=== PATIENT | female | born 1990 | race Two or more races ===

== ENCOUNTER 2020-01-18 12:27 | Emergency (ER) | payer MEDICAID ==
[~2020-01-18] VITALS: Ht 167.6 cm; Wt 81.6 kg
[2020-01-18 12:33] VITALS: BP 107/55
[2020-01-18 12:39] VITALS: BP 110/60
--- NOTE | 2020-01-18 12:39 | NUR ---
ED Nurse Note: Patient walked in to ED for c/o rash x 3 days. PT reports redness and itchiness, and thinks its possible allergic reaction to something. pt also states she is 8 weeks .
[2020-01-18] MEDS ORDERED: BENADRYL25 MG ORAL (12:50)
[2020-01-18] MEDS ORDERED: HYDROCORTISONE28 G2 TP (12:50)
[2020-01-18] MEDS ORDERED: PREDNISONE20 MG ORAL (12:50)
--- NOTE | 2020-01-18 12:58 | NUR ---
ER DISCHARGE NOTE: Patient is cleared to be discharged per ERMD, pt is aox4, on room air, with stable vital signs. pt was given dc and prescription instructions, pt was able to verbalize understanding, pt id band removed without complications. pt is able to ambulate with steady gait. pt took all belongings.
--- NOTE | 2020-01-18 12:59 | Emergency Room Report ---
History of Present Illness General Chief Complaint: Skin Rash/Abscess Source: Patient Present Illness HPI Patient presents with complaints of rash that she has noticed on both of her legs over the past 3 days Patient reports that they are fairly itchy in nature she is approximately 9 weeks denies any other chest pain or shortness of breath Denies any vaginal discharge denies any pelvic pain Patient reports that she is a G4, P3 denies any dysuria frequency the rash appears to be mainly localized to both lower legs Does not recall any specific contact with any new products Allergies: Coded Allergies: No Known Allergies (Unverified , 10/08/15) COVID-19 Screening Contact w/high risk pt: No Recent Travel to affected area: No Experienced COVID-19 symptoms?: No Patient History Past Medical History: see triage record Now: Yes : 4 Para: 4 Reviewed Nursing Documentation: PMH: Agreed; PSxH: Agreed Nursing Documentation-PM Past Medical History: No Stated History Review of Systems All Other Systems: negative except mentioned in HPI Physical Exam Vital Signs Date Time Temp Pulse Resp B/P (MAP) Pulse Ox O2 Delivery O2 Flow Rate FiO2 01/18/20 12:33 98.6 84 19 107/55 (72) 96 Sp02 EP Interpretation: reviewed, normal General Appearance: well appearing, no apparent distress Head: normocephalic, atraumatic Eyes: bilateral eye PERRL, bilateral eye EOMI ENT: hearing grossly normal, normal pharynx, TMs + canals normal, uvula midline Neck: full range of motion, supple, no meningismus, no bony tend Respiratory: lungs clear, normal breath sounds, no rhonchi, no respiratory distress, no retraction, no accessory muscle use Cardiovascular #1: normal peripheral pulses, regular rate, rhythm, no edema, no gallop, no JVD, no murmur Gastrointestinal: normal bowel sounds, non tender - Early abdomen is not palpable, soft, no mass, no organomegaly, non-distended, no guarding, no hernia, no pulsatile mass, no rebound Genitourinary: no CVA tenderness Musculoskeletal: normal inspection Neurologic: motor strength/tone normal, rock wool insulator III-XII nml as tested, oriented x3 , sensory intact, responsive Psychiatric: mood/affect normal Skin: other - Urticarial rash noted diffusely in the lower extremity does not appear to affect the base of the feet Lymphatic: normal inspection, no adenopathy Medical Decision Making Diagnostic Impression: Primary Impression: allergic reaction ER Course The rash appears to be fairly localized to both lower legs there is consideration for possible lotion for shaving her legs or other contact with a razor It appears urticarial in nature and there is no petechiae There is no dermal pattern to it and appears allergic in nature Patient will have initial conservative outpatient trial avoid contact with any foreign material and return with any changes or concerns Last Vital Signs Date Time Temp Pulse Resp B/P (MAP) Pulse Ox O2 Delivery O2 Flow Rate FiO2 01/18/20 12:39 98.6 85 18 110/60 97 Status: improved Disposition: HOME, SELF-CARE Condition: Improved Scripts Hydrocortisone 1% Oint (Hydrocortisone 1% Oint*) Y Oint 2 GM TP DAILY for 5 Days, #2 GM Prov: Sean Watson DO 01/18/20 Prednisone* (PREDNISONE*) 20 Mg Tablet 20 MG ORAL BID, #8 TAB Prov: Sean Watson DO 01/18/20 Diphenhydramine Hcl* (BENADRYL*) 25 Mg Capsule 25 MG ORAL Q8HR PRN for Itching, #20 CAP Prov: Sean Watson DO 01/18/20 Referrals: [facility] Patient Instructions: Rash, [id number] Additional Instructions: Patient is provided with the discharge instructions notified to follow up with primary doctor in the next 2-3 days otherwise return to the er with any worsening symptoms. Please note that this report is being documented using [employer] technology. This can lead to erroneous entry secondary to incorrect interpretation by the dictating instrument. Sean Watson DO January 18, 2020 12:59
== END 2020-01-18 12:59 | disposition home or self-care (01) ==
LOC: EMR 12:50
DX: T78.40XA Allergy, unspecified, initial encounter (principal); X58.XXXA Exposure to other specified factors, initial encounter; O26.90 Pregnancy related conditions, unspecified, unspecified trimester; Z3A.00 Weeks of gestation of pregnancy not specified
CPT/HCPCS: 99282

== ENCOUNTER 2020-11-17 14:53 | Emergency (ER) | payer MEDICAID ==
[~2020-11-17] VITALS: Ht 167.6 cm; Wt 99.8 kg
[~2020-11-17 14:53] MED LIST: BENADRYL25 MG ORAL; HYDROCORTISONE28 G2 TP; PREDNISONE20 MG ORAL
[2020-11-17 16:42] VITALS: BP 112/61
[2020-11-17 16:51] LABS: ANION GAP 10 mmol/L (5-15); BLOOD UREA NITROGEN 16 mg/dL (7-18); CALCIUM 8.9 MG/DL (8.5-10.1); CARBON DIOXIDE 25 MMOL/L (21-32); CHLORIDE 104 MMOL/L (98-107); CREATININE 0.8 MG/DL (0.55-1.30); POTASSIUM 3.7 MMOL/L (3.5-5.1); SODIUM 139 MMOL/L (136-145)
[2020-11-17 16:53] LABS: ALANINE AMINOTRANSFERASE 31 U/L (12-78); ALBUMIN 3.9 G/DL (3.4-5.0); ALBUMIN/GLOBULIN RATIO 0.9 (1.0-2.7); ALKALINE PHOSPHATASE 76 U/L (46-116); ASPARTATE AMINO TRANSFERASE 18 U/L (15-37); BILIRUBIN,TOTAL 0.6 MG/DL (0.2-1.0)
[2020-11-17 17:05] LABS: HEMATOCRIT 37.1 % (37.0-47.0); HEMOGLOBIN 11.2 G/DL (12.0-16.0); MEAN CORPUSCULAR VOLUME 77 FL (80-99); PLATELET COUNT 207 K/UL (150-450); RED CELL DISTRIBUTION WIDTH 16.5 % (11.6-14.8); WHITE BLOOD COUNT 9.2 K/UL (4.8-10.8)
--- NOTE | 2020-11-17 17:48 | Diagnostic Imaging Report ---
EXAM: CT Abdomen and Pelvis With Intravenous Contrast CLINICAL HISTORY: PAIN TECHNIQUE: Axial computed tomography images of the abdomen and pelvis with intravenous contrast. CTDI is 10.7 mGy and DLP is 599.1 mGy-cm. One or more of the following dose reduction techniques were used: automated exposure control, adjustment of the mA and/or kV according to patient size, use of iterative reconstruction technique. COMPARISON: None. FINDINGS: Lung bases: Unremarkable. No mass. No consolidation. Mediastinum: Postoperative changes of the level of the stomach. No hiatal hernia. ABDOMEN: Liver: Unremarkable. No mass. Gallbladder and bile ducts: Unremarkable. No calcified stones. No ductal dilation. Pancreas: Unremarkable. No mass. No ductal dilation. Spleen: Unremarkable. No splenomegaly. Adrenals: Unremarkable. No mass. Kidneys and ureters: Unremarkable. No solid mass. No hydronephrosis. Stomach and bowel: Diffuse thickening of the wall throughout the ascending colon, transverse colon and less severe through the descending colon consistent with diffuse colitis. No obstruction. PELVIS: Appendix: Normal appendix. Bladder: Unremarkable. No mass. Reproductive: Unremarkable as visualized. ABDOMEN and PELVIS: Intraperitoneal space: Unremarkable. No free air. No significant fluid collection. Bones/joints: Mild degenerative disease at L5-S1. No acute fracture. No dislocation. Soft tissues: Unremarkable. Vasculature: Unremarkable. No abdominal aortic aneurysm. Lymph nodes: Unremarkable. No enlarged lymph nodes. IMPRESSION: 1. Diffuse colitis as described. No acute appendicitis or bowel obstruction. 2. Unremarkable abdominal viscera.
[2020-11-17 17:56] VITALS: BP 106/57
--- NOTE | 2020-11-17 17:59 | NUR ---
pt arrived for chills, upper abd pain, nausea, diarrhea x2 days. pt denies fever. checked temp oral, pt febrile (see vitals charting). Nahal notified. pt placed on monitor. IV started, blood drawn, labs sent, pt urine sent. pt medicated per eMAR. pt A&OX4, stable. pt denies PMH. denies allergies to medication. pt taken to CT, US completed. 1749: recheck pt temp, 101.2 oral, Nahal notified. pt denies pain.
--- NOTE | 2020-11-17 18:16 | Emergency Room Report ---
History of Present Illness General Chief Complaint: Abdominal Pain Source: Patient Present Illness HPI 30-year-old female with history of gastritis here complaining of 1 day of abdominal pain mainly in epigastric and right upper quadrant, fever, flatulence. Reports that she got tested for COVID-19 today and tested negative. Denies any cough or congestion. Reports that she has had multiple bouts of nonbloody diarrhea. Denies nausea vomiting. Denies headache and dizziness. Denies urinary frequency or urgency, . Reports that she usually eats raw fish and oysters. Patient has history of gastric bypass which happened in 2019. Is up-to-date with all have been assessed to general surgeons. Reports that she also eats a lot of spicy acidic food. Appears to be stable, febrile upon arrival. Denies palpitation chest pain. Reports that symptoms started at rest. Denies recent travel. Reports that she smokes marijuana daily basis however denies all other drug use, tobacco smoke, alcohol intake. 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 COVID-19 Screening: Negative COVID-19 COVID-19 Testing Source: nasal Patient History Past Medical History: see triage record Past Surgical History: none Pertinent Family History: none Social History: Reports: drug use - Marijuana use Last Menstrual Period: 11/06/20 Now: No Immunizations: UTD Reviewed Nursing Documentation: PMH: Agreed; PSxH: Agreed Nursing Documentation-PMH Past Medical History: No Stated History Review of Systems All Other Systems: negative except mentioned in HPI Physical Exam Vital Signs Date Time Temp Pulse Resp B/P (MAP) Pulse Ox O2 Delivery O2 Flow Rate FiO2 11/17/20 16:16 99.0 86 18 130/80 (97) 98 Room Air Sp02 EP Interpretation: reviewed, abnormal - Temperature 102 F General Appearance: no apparent distress, alert, GCS 15, non-toxic Head: normocephalic, atraumatic Eyes: bilateral eye normal inspection, bilateral eye PERRL ENT: normal pharynx Neck: supple, no meningismus Respiratory: chest non-tender, lungs clear, normal breath sounds, no rhonchi, no retraction, speaking full sentences Cardiovascular #1: no edema, no murmur Gastrointestinal: non tender, no mass, no organomegaly, no peritonitis, no bruit, non-distended, guarding - Epigastric, right upper quadrant, periumbilical Rectal: deferred Genitourinary: no CVA tenderness Musculoskeletal: back normal, normal range of motion, gait/station normal, non-tender Neurologic: alert, motor strength/tone normal, oriented x3, sensory intact, responsive, speech normal Psychiatric: judgement/insight normal, memory normal, mood/affect normal, no suicidal/homicidal ideation Skin: no rash Lymphatic: no adenopathy Medical Decision Making PA Attestation All diagnoses and treatment plans were reviewed and discussed with my supervising physician Dr. Chavez Diagnostic Impression: Primary Impression: Infectious colitis Additional Impression: Gastritis ER Course 30-year-old female with history of gastritis here complaining of 1 day of abdominal pain mainly in epigastric and right upper quadrant, fever, flatulence. Reports that she got tested for COVID-19 today and tested negative. Denies any cough or congestion. Reports that she has had multiple bouts of nonbloody diarrhea. Denies nausea vomiting. Denies headache and dizziness. Denies urinary frequency or urgency, . Reports that she usually eats raw fish and oysters. Patient has history of gastric bypass which happened in 2019. Is up-to-date with all have been assessed to general surgeons. Reports that she also eats a lot of spicy acidic food. Appears to be stable, febrile upon arrival. Denies palpitation chest pain. Reports that symptoms started at rest. Denies recent travel. Reports that she smokes marijuana daily basis however denies all other drug use, tobacco smoke, alcohol intake. Ddx considered but are not limited to: appendicitis, cholecystis, gastritis, gastroenteritis, UTI, pyelonephritis, SBO, diverticulitis, influenza with GI manifestation, PR, complication with Vital signs: are WNL, pt. is febrile H&PE are most consistent with: Infectious colitis most likely secondary to consumption of raw seafood possible Salmonella ORDERS: abdominal CT, abdominal pain set, abdominal US, CBC, CMP, lipase, UA urine test ciprofloxacin, Flagyl, Pepcid, dicyclomine, ED INTERVENTIONS: NS bolus DISCHARGE: At this time pt. is stable for d/c to home. Will provide printed patient care instructions, and any necessary prescriptions. Care plan and follow up instructions have been discussed with the patient prior to discharge. Follow-up avoid drinking alcohol with Flagyl, avoid eating raw seafood, spicy food. If worsening symptoms return to the emergency room. Stool culture may be needed. Also H. pylori testing may be needed. CT/MRI/US Diagnostic Results CT/MRI/US Diagnostic Results #1: Imaging Test Ordered: CT abdomen pelvis with contrast Impression FINDINGS: Lung bases: Unremarkable. No mass. No consolidation. Mediastinum: Postoperative changes of the level of the stomach. No hiatal hernia. ABDOMEN: Liver: Unremarkable. No mass. Gallbladder and bile ducts: Unremarkable. No calcified stones. No ductal dilati on. Pancreas: Unremarkable. No mass. No ductal dilation. Spleen: Unremarkable. No splenomegaly. Adrenals: Unremarkable. No mass. Kidneys and ureters: Unremarkable. No solid mass. No hydronephrosis. Stomach and bowel: Diffuse thickening of the wall throughout the ascending colon, transverse colon and less severe through the descending colon consistent with diffuse colitis. No obstruction. PELVIS: Appendix: Normal appendix. Bladder: Unremarkable. No mass. Reproductive: Unremarkable as visualized. ABDOMEN and PELVIS: Intraperitoneal space: Unremarkable. No free air. No significant fluid collection. Bones/joints: Mild degenerative disease at L5-S1. No acute fracture. No dislocation. Soft tissues: Unremarkable. Vasculature: Unremarkable. No abdominal aortic aneurysm. Lymph nodes: Unremarkable. No enlarged lymph nodes. IMPRESSION: 1. Diffuse colitis as described. No acute appendicitis or bowel obstruction. 2. Unremarkable abdominal viscera. CT/MRI/US Diagnostic Results #2: Imaging Test Ordered: Limited study of right upper quadrant ultrasound Impression No cholecystitis or cholelithiasis noted Last Vital Signs Date Time Temp Pulse Resp B/P (MAP) Pulse Ox O2 Delivery O2 Flow Rate FiO2 11/17/20 17:56 101.2 72 18 106/57 100 Room Air Disposition: HOME, SELF-CARE Condition: Stable Scripts Acetaminophen* (TYLENOL EXTRA STRENGTH*) 500 Mg Tablet 500 MG ORAL Q8H PRN for Prn Headache/Temp > 101, #30 TAB 0 Refills Prov: Samira Lozada 11/17/20 Dicyclomine Hcl* (DICYCLOMINE HCL*) 10 Mg Capsule 10 MG ORAL QID, #20 CAP Prov: Samira Lozada 11/17/20 Famotidine* (Pepcid 20mg tablet*) 20 Mg Tablet 20 MG ORAL TWICE A DAY for Gerd, #60 TAB 0 Refills Prov: Samira Lozada 11/17/20 Metronidazole* (FLAGYL*) 500 Mg Tablet 500 MG ORAL BID for 10 Days, #20 TAB Prov: Samira Lozada 11/17/20 Ciprofloxacin* (CIPRO*) 500 Mg Tablet 500 MG PO BID for 10 Days, #20 TAB Prov: Samira Lozada 11/17/20 Referrals: [facility],REFERR[facility] (PCP) Patient Instructions: Abdominal Pain, Adult, Colitis Additional Instructions: take medication as directed, follow up with primary care provider and [employer] . avoid raw seafood. Increase oral hydration especially electrolyte water, keep a brat diet, avoid eating spicy acidic food, if worsening symptoms return to the emergency room Samira Lozada Nov 17, 2020 18:15
--- NOTE | 2020-11-17 18:19 | Diagnostic Imaging Report ---
EXAM: US Abdomen Complete CLINICAL HISTORY: PAIN TECHNIQUE: Real-time ultrasound of the abdomen with image documentation. COMPARISON: None. FINDINGS: Limitations: Exam is limited due to gas artifact in the bowel. Liver: The liver measures 16.9 cm. No intrahepatic bile duct dilation. Gallbladder: The gallbladder wall measures 2.4 mm. Gallbladder is normally distended with no stones, sludge or polyp. Negative Bermudez sign. Common bile duct: The common bile duct measures 2.3 mm. No stones. No dilation. Pancreas: There is partial obscuration of the head and tail of the pancreas with the visualized pancreas within normal limits. Kidneys: The right kidney measures 12.9 x 4.4 x 6.2 cm. The left kidney measures 12.8 x 5.1 x 6.2 cm be No stones. No hydronephrosis. Spleen: The spleen measures 9.7 cm. Aorta: Unremarkable. No aneurysm. Inferior vena cava: Unremarkable. Free fluid: No free fluid. IMPRESSION: 1. No gallstones or signs of acute cholecystitis. 2. Suboptimally seen pancreas otherwise unremarkable ultrasound of the abdomen.
[2020-11-17] MEDS ORDERED: METRONIDAZOLE500 MG ORAL (18:22)
[2020-11-17] MEDS ORDERED: TYLENOL EXTRA500 MG ORAL (18:22)
[2020-11-17] MEDS ORDERED: DICYCLOMINE HCL10 MG ORAL (18:22)
[2020-11-17] MEDS ORDERED: FAMOTIDINE20 MG ORAL (18:22)
[2020-11-17] MEDS ORDERED: CIPRO500 MG PO (18:22)
--- NOTE | 2020-11-17 18:41 | NUR ---
ED Nurse Note: Pt cleared by health care Provider for discharge. DC instructions/prescription was given and explained to pt and verbalized understanding of teachings. All medical deviecs such as ID band removed. Pt is AAO x4, ambulatory and left with all personal belongings.
== END 2020-11-17 18:45 | disposition home or self-care (01) ==
LOC: EMR 15:30
DX: A09 Infectious gastroenteritis and colitis, unspecified (principal); M51.37 Other intervertebral disc degeneration, lumbosacral region; K29.70 Gastritis, unspecified, without bleeding; F12.90 Cannabis use, unspecified, uncomplicated; Z98.84 Bariatric surgery status
CPT/HCPCS: 36415; 74177; 76700; 80053; 80307; 81025; 83690; 85007; 85025; J7030; Q9965